=== PATIENT | female | born 1975 | race Caucasian/White ===

== ENCOUNTER 2017-01-28 12:28 | Emergency (ER) | payer SELFPAY ==
[~2017-01-28] VITALS: Ht 167.6 cm; Wt 59.8 kg
[2017-01-28 12:30] VITALS: BP 141/81; PULSE 112; TEMP 98
[2017-01-28] MEDS ORDERED: ULTRAM 50MG TAB50 MG PO (13:07)
[2017-01-28] MEDS ORDERED: NORCO 325 MG-51 TAB PO (13:07)
== END 2017-01-28 14:00 ==
LOC: COL.ER 12:28
DX: M54.2 Cervicalgia (principal); M54.5 Low back pain; M54.6 Pain in thoracic spine; M25.551 Pain in right hip; G89.29 Other chronic pain
CPT/HCPCS: J1885

== ENCOUNTER 2018-12-03 08:43 | Emergency (ER) | payer SELFPAY ==
[~2018-12-03] VITALS: Ht 167.6 cm; Wt 54.5 kg
[~2018-12-03 08:43] MED LIST: NORCO 325 MG-51 TAB PO; ULTRAM 50MG TAB50 MG PO
[2018-12-03 08:47] VITALS: TEMP 97.9
[2018-12-03 09:24] LABS: BASO % 0.5 % (0.0-2.0); EOS # 0.1 (0.0-0.7); EOS % 1.8 % (0-4.0); GRAN # 4.6 (1.4-6.5); GRAN % 62.9 % (42.2-75.2); HEMATOCRIT 39.6 % (37.0-47.0); HEMOGLOBIN 13.4 g/dl (12.5-16.0); LYMPH # 2.1 (1.2-3.4); LYMPH % 28.1 % (20.0-51.0); MEAN CELL VOLUME 86 fl (80.0-100.0); MEAN CORPUSCULAR HEMOGLOBIN 29 pg (27.0-31.0); MEAN CORPUSCULAR HGB CONC 34 g/dl (33.0-37.0); MEAN PLATELET VOLUME 11.1 fl (7.4-10.4); MONO # 0.5 (0.1-0.6); MONO % 6.4 % (1.7-9.3); PLATELET COUNT 242 K/mm3 (130-400); REDCELL DISTRIBUTION WIDTH-CV 15.4 % (11.5-14.5)
[2018-12-03 09:35] LABS: ALANINE AMINOTRANSFERASE 21 U/L (9-52); ALKALINE PHOSPHATASE 69 U/L (50-136); ANION GAP 5 mmol/L (7-16); AST,SGOT 21 U/L (15-37); BILIRUBIN,TOTAL 0.5 mg/dL (0.0-1.0); BLOOD UREA NITROGEN 13 mg/dL (7-17); C-REACTIVE PROTEIN 0.9 mg/dL (0.0-0.9); CALCIUM 9.7 mg/dL (8.4-10.2); CARBON DIOXIDE 27 mmol/L (22-30); CHLORIDE 108 mmol/L (98-107); CREATININE, serum 0.73 mg/dL (0.52-1.25); GLUCOSE 93 mg/dL (74-106); LIPASE 181 U/L (23-300); SODIUM 139 mmol/L (137-145); TOTAL PROTEIN 6.9 gm/dL (6.4-8.2)
[2018-12-03 09:44] LABS: TROPONIN-I < 0.012 ng/mL (0.000-0.034)
[2018-12-03 10:24] VITALS: BP 108/66; PULSE 70
== END 2018-12-03 10:26 | disposition home or self-care (01) ==
LOC: COL.ER 08:43
PROVIDERS: Physician Assistant
DX: R07.89 Other chest pain (principal); K21.9 Gastro-esophageal reflux disease without esophagitis
CPT/HCPCS: J2405; J7030